=== PATIENT | female | born 1985 | race Caucasian/White ===

== ENCOUNTER 2018-07-24 16:28 | Emergency (ER) | payer SELFPAY ==
[2018-07-24] MEDS ORDERED: LORazepam 2 MG/ML SDV IM ONE (16:33)
[2018-07-24] MEDS ORDERED: Sodium Chloride 0.9% 10 ML Syringe FLUSH PRN (17:05)
[2018-07-24] MEDS ORDERED: LORazepam 2 MG/ML SDV IVPUSH STA (17:07)
[2018-07-24] MEDS ORDERED: Ondansetron 4 MG/2 ML SDV IVPUSH ONE (17:11)
[2018-07-24] MEDS ORDERED: Sodium Chloride 0.9% 1,000 ML IV ONE (17:17)
--- NOTE | 2018-07-24 17:19 | EDM.PDOC ---
ED HPI GENERAL MEDICAL PROBLEM - General Chief Complaint: Respiratory Problem Stated Complaint: shortness of breath Time Seen by Provider: 07/24/18 16:28 Source of Information: Reports: Patient - History of Present Illness INITIAL COMMENTS - FREE TEXT/NARRATIVE: Patient comes into the emergency department with complaint of respiratory distress. Patient states she has short of breath over the course of the last 2- 3 days. She states that she's had an upper respiratory infection and noticed today that it became very severe. She did use her albuterol inhaler 2 different times. She states that she was a unable to speak full sentences and needed to call for help. He was into the emergency department unable to speak more than 2 words at a time. States that she cannot get air in. Patient denies any recent fevers, chest pain, dizziness, lightheadedness, seizure, or edema. Onset: Sudden Severity: Moderate Improves with: Reports: None Worsens with: Reports: None Chest Pain Score (Numeric/FACES): 8 - Related Data Allergies Allergy/AdvReac Type Severity Reaction Status Date / Time Penicillins Allergy Cannot Verified 06/25/13 00:49 Remember Home Meds: Home Meds Albuterol [Ventolin HFA] 2 inhaler PO PRN 06/25/13 [History] Fluticasone/Salmeterol [Advair 100-50] 1 - 2 inhaler PRN 06/25/13 [History] Levonorgestrel [Mirena] 06/25/13 [History] methylPREDNISolone [Medrol] 4 mg PO DAILY #15 dospk 06/25/13 [Rx] predniSONE 10 mg PO BID #6 tab 07/24/18 [Rx] ED ROS GENERAL - Review of Systems Review Of Systems: See Below Constitutional: Reports: No Symptoms HEENT: Reports: No Symptoms Respiratory: Reports: Shortness of Breath, Cough Cardiovascular: Reports: No Symptoms Endocrine: Reports: No Symptoms Musculoskeletal: Reports: No Symptoms Skin: Reports: No Symptoms Neurological: Reports: No Symptoms Psychiatric: Reports: No Symptoms Hematologic/Lymphatic: Reports: No Symptoms Immunologic: Reports: No Symptoms ED EXAM, GENERAL - Physical Exam Exam: See Below Exam Limited By: No Limitations General Appearance: Alert, Anxious, Mild Distress Head: Atraumatic, Normocephalic Neck: Normal Inspection, Supple, Non-Tender, Full Range of Motion Respiratory/Chest: Respiratory Distress, Decreased Breath Sounds. No: Crackles , Rales, Stridor, Pleural Rub Cardiovascular: Tachycardia GI/Abdominal: Normal Bowel Sounds, Soft, Non-Tender, No Distention, No Abnormal Bruit Back Exam: Normal Inspection, Full Range of Motion Extremities: Normal Inspection, Normal Range of Motion, Non-Tender, No Pedal Edema, Normal Capillary Refill Neurological: Alert, Oriented, Normal Gait Psychiatric: Anxious Skin Exam: Warm, Dry, Intact Course - Vital Signs Last Recorded V/S: Last Vital Signs Temp 36.3 C 07/24/18 17:10 Pulse 86 07/24/18 17:10 Resp 30 H 07/24/18 17:10 BP 138/90 07/24/18 17:10 Pulse Ox 100 07/24/18 17:10 - Orders/Labs/Meds Orders: Active Orders 24 hr Category Date Time Status Cardiac Monitoring [RC] . DIRECTED Care 07/24/18 17:06 Active EKG Documentation Completion [RC] STAT Care 07/24/18 17:24 Active Sodium Chloride 0.9% [Saline Flush] Med 07/24/18 17:05 Active 10 ml FLUSH ASDIRECTED PRN Peripheral IV Insertion Adult [OM.PC] Stat Oth 07/24/18 17:06 Ordered Medication Orders Sodium Chloride (Saline Flush) 10 ml FLUSH ASDIRECTED PRN PRN Reason: Keep Vein Open Labs: Laboratory Tests 07/24/18 07/24/18 Range/Units 17:05 17:05 WBC 9.0 (4.0-10.0) x10^3/uL RBC 4.28 (4.00-5.50) x10^6/uL Hgb 13.7 (12.0-16.0) g/dL Hct 39.5 (33.0-47.0) % MCV 92.3 (78.0-93.0) fL MCH 32.0 (26.0-32.0) pg MCHC 34.7 (32.0-36.0) g/dL RDW Coeff of Clarence 11.3 (10.0-15.0) % Plt Count 331 (130-400) x10^3/uL Neut % (Auto) 72.7 (50.0-80.0) % Lymph % (Auto) 18.5 L (25.0-50.0) % [place] % (Auto) 7.9 (2.0-11.0) % Eos % (Auto) 0.6 (0.0-4.0) % Baso % (Auto) 0.3 (0.2-1.2) % Sodium 145 (136-145) mmol/L Potassium 3.6 (3.5-5.1) mmol/L Chloride 104 (98-107) mmol/L Carbon Dioxide 24 (21-32) mmol/L Anion Gap 20.6 H (10-20) mmol/L BUN 15 (7-18) mg/dL Creatinine 0.6 (0.55-1.02) mg/dL Est Cr Clr Drug Dosing 107.01 mL/min Estimated GFR (MDRD) > 60 Glucose 88 (74-106) mg/dL Calcium 9.5 (8.5-10.1) mg/dL Corrected Calcium 9.34 (8.5-10.1) mg/dL Total Bilirubin 0.4 (0.2-1.0) mg/dL AST 24 (15-37) U/L ALT 38 (14-59) U/L Alkaline Phosphatase 59 (46-116) U/L Total Protein 8.1 (6.4-8.2) g/dL Albumin 4.2 (3.4-5.0) g/dL Globulin 3.9 Albumin/Globulin Ratio 1.08 Meds: Medications Generic Name Dose Route Start Last Admin Trade Name Freq PRN Reason Stop Dose Admin Sodium Chloride 10 ml 07/24/18 17:05 Saline Flush FLUSH ASDIRECTED PRN Keep Vein Open Discontinued Medications Generic Name Dose Route Start Last Admin Trade Name Freq PRN Reason Stop Dose Admin Sodium Chloride 1,000 mls @ 1,000 mls/hr 07/24/18 17:17 Normal Saline IV 07/24/18 18:16 ONETIME ONE Lorazepam 2 mg 07/24/18 16:33 Ativan IM 07/24/18 16:34 ONETIME ONE Lorazepam 1 mg 07/24/18 17:07 Ativan IVPUSH 07/24/18 17:08 NOW STA Ondansetron HCl 4 mg 07/24/18 17:11 Zofran IVPUSH 07/24/18 17:12 ONETIME ONE - Re-Assessments/Exams Free Text/Narrative Re-Assessment/Exam: 07/24/18 17:53 Pt is calm and more relaxed. Her breathing is more calm. Lung [place] are open. "I feel better". Departure - Departure Time of Disposition: 18:35 Disposition: Home, Self-Care 01 Condition: Good Clinical Impression: Anxiety attack Exacerbation of asthma Qualifiers: Asthma severity: mild Asthma persistence: unspecified Qualified Code(s): J45.901 - Unspecified asthma with (acute) exacerbation - Discharge Information *PRESCRIPTION DRUG MONITORING PROGRAM REVIEWED*: No *COPY OF PRESCRIPTION DRUG MONITORING REPORT IN PATIENT ANUM: No Instructions: Asthma, Adult, Panic Attack, Qbpe-so-Xers Referrals: Tresa Raymond DO [Primary Care Provider] - Forms: ED Department Discharge Additional Instructions: 1. rest 2. increase water intake 3. follow up with PCP if not better within a week if not better 4. Prednisone script sent with the patient 5. Pt is advised use inhaler as needed to help with any airway restriction or shortness of breath 6. Activity as tolerated 7. Call with any questions or concerns - Problem List Review Problem List Initiated/Reviewed/Updated: Yes - My Orders Last 24 Hours: My Active Orders 07/24/18 17:05 Sodium Chloride 0.9% [Saline Flush] 10 ml FLUSH ASDIRECTED PRN 07/24/18 17:06 Cardiac Monitoring [RC] . DIRECTED Peripheral IV Insertion Adult [OM.PC] Stat 07/24/18 17:24 EKG Documentation Completion [RC] STAT - Assessment/Plan Last 24 Hours: My Active Orders 07/24/18 17:05 Sodium Chloride 0.9% [Saline Flush] 10 ml FLUSH ASDIRECTED PRN 07/24/18 17:06 Cardiac Monitoring [RC] . DIRECTED Peripheral IV Insertion Adult [OM.PC] Stat 07/24/18 17:24 EKG Documentation Completion [RC] STAT Assessment:: 1. respiratory distress 2. anxious Plan: 1. Albuterol given in ER with relief noted 2. IV started 3. EKG completed in ER 4. Ativan given in ER for severe anxious symptoms 5. Zofran given to help with nausea 6. Labs completed ER 7. x ray completed in ER 8. pt is feeling better, labs and xray are negative. Will give the pt a 3 day supply of prednisone to help with the bronchospasm. Pt is advised to follow up as needed. 9. Education given and follow up instructions provided 10. All questions and concerns were answered prior to discharge.
[2018-07-24 17:43] LABS: ANION GAP 20.6 mmol/L (10-20); CHLORIDE,CL 104 mmol/L (98-107); SODIUM,NA 145 mmol/L (136-145)
--- NOTE | 2018-07-24 18:22 | CR ---
[id number] RAD/RAD Chest PA And Lateral EXAM: RAD Chest PA And Lateral INDICATION: SHORT OF BREATH. COMPARISON: None. DISCUSSION: Cardiomediastinal silhouette is normal in size and contour. No infiltrate, effusion, pneumothorax, or edema. IMPRESSION: Negative examination of the chest. Leighton Saini MD 07/24/18 [id number] Thank you for allowing us to participate in the care of your patient.
[2018-07-24] MEDS ORDERED: Albuterol 0.083% 2.5 MG/3 ML Neb Soln NEB ONE (22:12)
[2018-07-24] MEDS ORDERED: Albuterol/Ipratropium 3.0-0.5 MG/3 ML Neb Soln ONE (22:27)
== END 2018-07-24 18:49 | disposition home or self-care (01) ==
LOC: VM.ED 16:28
DX: J45.901 Unspecified asthma with (acute) exacerbation (principal); F41.9 Anxiety disorder, unspecified; Z88.0 Allergy status to penicillin
CPT/HCPCS: 71046; 80053; 85025; 93005; 94640; 96361; 96374; 96375; 99285; J2060; J2405; J7030; 36415; J7613-GY

== ENCOUNTER 2022-09-14 23:33 | Emergency (ER) | payer OTHER | END 2022-09-15 00:30 | disposition home or self-care (01) | LOC: VM.ED 23:33 | DX: S06.9X1A Unspecified intracranial injury with loss of consciousness of 30 minutes or less, initial encounter (principal); J45.909 Unspecified asthma, uncomplicated; Z88.0 Allergy status to penicillin; Y04.0XXA Assault by unarmed brawl or fight, initial encounter | CPT/HCPCS: 70450; 99284 ==

== ENCOUNTER 2023-05-13 23:30 | Emergency (ER) | payer OTHER, MEDICAID ==
[2023-05-14 00:21] LABS: BASOPHILS ABSOLUTE AUTO 0.1 x10^3/uL (0.0-0.2); BASOPHILS PERCENT AUTO 0.6 % (0.2-1.2); EOSINOPHILS ABSOLUTE AUTO 0.1 x10^3/uL (0.0-0.5); EOSINOPHILS PERCENT AUTO 0.6 % (0.0-4.0); HEMATOCRIT 41.5 % (33.0-47.0); HEMOGLOBIN 14.7 g/dL (12.0-16.0); IMMATURE GRAN ABSOLUTE AUTO 0.01 x10^3/uL (0.00-0.07); LYMPHOCYTES ABSOLUTE AUTO 2.2 x10^3/uL (1.0-4.8); LYMPHOCYTES PERCENT AUTO 26.6 % (25.0-50.0); MEAN CORPUSCULAR HEMOGLOBIN 33.6 pg (26.0-32.0); MEAN CORPUSCULAR HGB CONC 35.4 g/dL (32.0-36.0); MEAN CORPUSCULAR VOLUME 94.7 fL (78.0-93.0); MONOCYTES ABSOLUTE AUTO 0.9 x10^3/uL (0.0-0.8); MONOCYTES PERCENT AUTO 10.9 % (2.0-11.0); NEUTROPHILS ABSOLUTE AUTO 4.9 x10^3/uL (1.8-7.7); NEUTROPHILS PERCENT AUTO 61.2 % (50.0-80.0); PLATELET COUNT,PLT 242 x10^3/uL (130-400); RED BLOOD CELL COUNT 4.38 x10^6/uL (4.00-5.50); WHITE BLOOD CELL COUNT,WBC 8.1 x10^3/uL (4.0-10.0)
[2023-05-14 00:34] LABS: C-REACTIVE PROTEIN 0.51 mg/dL (<=0.50); CALCIUM 9.5 mg/dL (8.5-10.1); CREATININE 0.8 mg/dL (0.55-1.02); EST CRCL DRUG DOSING (CG) 76.89 mL/min
== END 2023-05-14 01:39 | disposition home or self-care (01) ==
LOC: VM.ED 23:30
DX: H11.30 Conjunctival hemorrhage, unspecified eye (principal); H53.131 Sudden visual loss, right eye; J45.909 Unspecified asthma, uncomplicated; Z88.0 Allergy status to penicillin; Z79.899 Other long term (current) drug therapy
CPT/HCPCS: 36415; 70450; 80048; 85025; 86140; 99283; 99284

== ENCOUNTER 2023-05-16 11:11 | Emergency (ER) | payer OTHER, MEDICAID ==
[2023-05-16] MEDS ORDERED: Sodium Chloride 0.9% 10 ML Syringe FLUSH PRN (11:23)
[2023-05-16] MEDS ORDERED: Albuterol/Ipratropium 3.0-0.5 MG/3 ML Neb Soln NEB ONE (11:31)
[2023-05-16 11:32] LABS: BASOPHILS PERCENT AUTO 0.4 % (0.2-1.2); EOSINOPHILS PERCENT AUTO 0.6 % (0.0-4.0); HEMOGLOBIN 15.2 g/dL (12.0-16.0); IMMATURE GRAN ABSOLUTE AUTO 0.01 x10^3/uL (0.00-0.07); LYMPHOCYTES ABSOLUTE AUTO 0.8 x10^3/uL (1.0-4.8); LYMPHOCYTES PERCENT AUTO 11.8 % (25.0-50.0); MEAN CORPUSCULAR HEMOGLOBIN 33.1 pg (26.0-32.0); MEAN CORPUSCULAR HGB CONC 35.3 g/dL (32.0-36.0); MEAN CORPUSCULAR VOLUME 93.7 fL (78.0-93.0); MONOCYTES ABSOLUTE AUTO 0.6 x10^3/uL (0.0-0.8); MONOCYTES PERCENT AUTO 8.1 % (2.0-11.0); NEUTROPHILS ABSOLUTE AUTO 5.4 x10^3/uL (1.8-7.7); PLATELET COUNT,PLT 222 x10^3/uL (130-400); RED BLOOD CELL COUNT 4.59 x10^6/uL (4.00-5.50); WHITE BLOOD CELL COUNT,WBC 6.8 x10^3/uL (4.0-10.0)
[2023-05-16 11:56] LABS: ALANINE AMINOTRANSFERASE,ALT 250 U/L (14-59); ALBUMIN 4.3 g/dL (3.4-5.0); ALKALINE PHOSPHATASE 72 U/L (46-116); ASPARTATE AMNIOTRANSFERASE,AST 154 U/L (15-37); BLOOD UREA NITROGEN,BUN 7 mg/dL (7-18); C-REACTIVE PROTEIN 0.51 mg/dL (<=0.50); CALCIUM 10.2 mg/dL (8.5-10.1); CARBON DIOXIDE,CO2 26 mmol/L (21-32); CHLORIDE,CL 100 mmol/L (98-107); CREATININE 0.7 mg/dL (0.55-1.02); GLUCOSE RANDOM 95 mg/dL (70-99); POTASSIUM,K 3.8 mmol/L (3.5-5.1); PROTEIN TOTAL,TP 8.6 g/dL (6.4-8.2); SODIUM,NA 139 mmol/L (136-145)
[2023-05-16 11:57] LABS: ANION GAP 16.8 mmol/L (5-15); ESTIMATED GFR 115 mL/min (>=60)
[2023-05-16 12:51] LABS: CORONAVIRUS COVID-19 NAA NEGATIVE (NEGATIVE); INFLUENZA A NAA NEGATIVE (NEGATIVE); INFLUENZA B NAA NEGATIVE (NEGATIVE); RESPIRATORY SYNCYTIAL VIR NAA NEGATIVE (NEGATIVE)
[2023-05-16] MEDS ORDERED: methylPREDNISolone Sodium Succinate 125 MG/2 ML SDV IV ONE (12:56)
== END 2023-05-16 13:11 | disposition home or self-care (01) ==
LOC: VM.ED 11:11
DX: J45.909 Unspecified asthma, uncomplicated (principal); Z20.822 Contact with and (suspected) exposure to COVID-19; Z88.0 Allergy status to penicillin; Z79.899 Other long term (current) drug therapy
CPT/HCPCS: 0241U; 71045; 80053; 84484; 85025; 85379; 86140; 93005; 93010; 94640; 96374; 99284; 99285-25; J2930; J7620-GY